=== PATIENT | male | born 2000 | race Caucasian/White ===

== ENCOUNTER 2019-09-15 03:07 | Emergency (ER) | payer BC, SELFPAY ==
[2019-09-15 03:08] VITALS: BP 142/118; PULSE 86; RESP 16; TEMP 36.9; O2SAT 96; BMI 24.3
--- NOTE | 2019-09-15 03:25 | ED.VIS.UPPEX ---
History of Present Illness Chief Complaint: Laceration Informant: Patient Occurred: Today - JPTA Mechanism/Context: Incised - accidentally on broken glass Context: Sudden Onset Timing: Continuous Quality of Pain: - - sore Location: left index finger Current Severity: Mild Maximum Severity: Mild Worsened by: nothing Relieved by: holding pressure (bleeding) Associated Symptoms: Negative for: Parasthesia, Weakness, Loss of Funtion Narrative: [id number]. Patient presents with a laceration to the pad of his left index finger because it will not stop bleeding. He does not have foreign body sensation. Tetanus Immunization: >10 years Past Medical History - Allergies and Home Meds Allergies/Adverse Reactions: Allergies No Known Allergies Allergy (Verified 09/15/19 03:16) Primary Care Physician: [facility] Doctor,Out of [Primary Care Provider] - Past Medical History: None Surgical History: no surgical history Lives: Roommate - College student Smoking Status: Never smoker Alcohol: Occasional Review of Systems General: Denies: Chills, Fever, Sweats Musculoskeletal: Reports: Extremity Pain. Denies: Swelling Skin: Reports: Wounds. Denies: Rash Neurological: Denies: Weakness, Numbness Physical Exam Vital Signs/Narrative: Vital Signs Temp Pulse Resp BP Pulse Ox 09/15/19 03:08 98.5 F 86 16 142/118 H 96 General: Well nourished, Well developed Head: Normocephalic, Atraumatic Extremeties: Left index finger: Full range of motion throughout all joints, all flexor and extensor tendons intact. Skin: Normal color, Trauma - 1.5 cm partial-thickness linear laceration to the pad of the left index finger. Does not involve the nail. Does not cross the DIPJ. Mild oozing of blood when pressure not held, however easy to control with pressure. Neurological: Alert, Oriented x3, Cranial nerves II-XII grossly intact, Normal Strength, Normal Sensation Psychological: Normal affect, Normal Mood Diagnostic/Tx/Re-eval - Medical Decision Making Discussed with patient. Laceration is partial-thickness, and he is more concerned about the bleeding. I think cleansing it and Dermabond and it would be reasonable, if it opens early before total healing, it will still be relatively partial-thickness, partially healed, and will probably still do okay even though Dermabond is not the best fix for a hand laceration which I discussed with them. He was comfortable with that and preferred to avoid suturing since it was on the pad of his finger. I did this while manually tourniquet in the finger for 4 or 5 minutes while Dermabond in it, after cleaning thoroughly with chlorhexidine. It took well without any bleeding complication during the drying process. Given appropriate discharge instructions. His tetanus was updated as well. Procedures - Lacerations Left index finger Length: 2 cm Depth: Skin Shape: Linear Prep: Sterile Conditions, Chlorhexadine Laceration repair: Dermabond Comment: Good hemostasis and skin edge apposition ED Disposition - Plan for ED Patient: Disposition: Home or Assisted Living Diagnosis: Laceration of left index finger w/o foreign body w/o damage to nail, Immunization, tetanus-diphtheria Instructions: LACERATION, Extremity (Skin Glue) Referrals: [facility] [GROUP OF PHYSICIANS] - As Needed
[2019-09-15] MEDS: Diphth,Pertuss(Acell),Tet Vac 0.5 ML Vial IM (03:34)
[2019-09-15 04:47] VITALS: PULSE 80; RESP 16; O2SAT 98
== END 2019-09-15 04:52 | disposition home or self-care (01) ==
PROVIDERS: Emergency Provider Emergency Medicine
DX: S61.211A Laceration without foreign body of left index finger without damage to nail, initial encounter (principal); W25.XXXA Contact with sharp glass, initial encounter; Y93.9 Activity, unspecified; Y92.9 Unspecified place or not applicable; Z23 Encounter for immunization
CPT/HCPCS: 12001; 90471; 90715; 99282